=== PATIENT | male | born 1995 | race African-American/Black ===

== ENCOUNTER 2019-07-27 08:39 | Inpatient (IN) | payer OTHER ==
[2019-07-27 09:28] VITALS: BMI 18.8
--- NOTE | 2019-07-27 11:36 | HP ---
CIWA Score Nausea/Vomitin Muscle Tremors: None Anxiety: 3 Agitation: 2 Paroxysmal Sweats: 3 Orientation: 2-Disoriented Date<2 days Tacttile Disturbances: 0-None Auditory Disturbances: 0-None Visual Disturbances: 0-None Headache: 1-Very Mild CIWA-Ar Total Score: 13 - Admission Criteria OASAS Guidelines: Admission for Medically Managed Detox: Requires at least one of the followin. CIWA greater than 12 2. Seizures within the past 24 hours 3. Delirium tremens within the past 24 hours 4. Hallucinations within the past 24 hours 5. Acute intervention needed for co occurring medical disorder 6. Acute intervention needed for co occurring psychiatric disorder 7. Severe withdrawal that cannot be handled at a lower level of care (continued vomiting, continued diarrhea, abnormal vital signs) requiring intravenous medication and/or fluids 8. Admission ROS [facility] - HPI Allergies/Adverse Reactions: Allergies Allergy/AdvReac Type Severity Reaction Status Date / Time chocolate flavor Allergy Verified 07/27/19 09:18 Fish Containing Products Allergy Verified 07/27/19 09:18 No Known Drug Allergies Allergy Verified 07/27/19 09:19 No Known Drug Intolerances Allergy Verified 07/27/19 09:19 peanut Allergy Verified 07/27/19 09:18 History of Present Illness: 23 y.o. male here w/ etoh use since last summer , reports seizure x once , current EDUARDO .128 K2 -since age 16 [place] - recnet use tobacco:denies pmhX ; ptsd, bipolar, sad , adhd , asthma , thumb surgery for removal of glass R 2017 nursing was unable to verify medications with pharmacy on record , floor nursing staff to ask pt about alternate pharmacy info . - Ebola screening Have you traveled outside of the country in the last 21 days: No Have you had contact with anyone from an Ebola affected area: No - Review of Systems Constitutional: Loss of Appetite EENT: reports: No Symptoms Reported (glasses - myopia, denies dysphagia) Respiratory: reports: See HPI Cardiac: reports: Other (reports chest wall pain since today - lifting weights at home . " it hurts when I touch it ") GI: reports: Nausea, Poor Appetite : reports: No Symptoms Reported Musculoskeletal: reports: Back Pain Integumentary: reports: No Symptoms Reported Neuro: reports: See HPI Endocrine: reports: No Symptoms Reported Psychiatric: reports: Agitated, Anxious, Depressed, Disorientated Patient History - Smoking Cessation Smoking history: Current some day smoker Have you smoked in the past 12 months: Yes Hx Chewing Tobacco Use: No Initiated information on smoking cessation: Yes 'Breaking Loose' booklet given: 07/27/19 - Substances abused Alcohol Substance route: Oral Frequency: Daily Amount used: 375 ML VODKA, [place] [employer] TEA, Age of first use: 23 Date of last use: 07/26/19 K2/Spice Substance route: Smoking Frequency: Daily Amount used: 30-40 BLUNTS Age of first use: 16 Date of last use: 07/26/19 Admission Physical Exam S - Vital Signs Vital Signs: Vital Signs - 24 hr 07/27/19 09:22 Temperature 97.0 F L Pulse Rate 71 Respiratory 18 Rate Blood Pressure 138/79 - Physical General Appearance: Yes: Alcohol on Breath, Intoxicated, Anxious HEENTM: Yes: EOMI, Hearing grossly Normal, Normocephalic, Normal Voice Respiratory: Yes: Lungs Clear, Normal Breath Sounds, No Respiratory Distress, No Accessory Muscle Use, Other (tender anterior chest wall , reproducible w/ palpation left upper ribcage) Neck: Yes: No masses,lesions,Nodules, Trachea in good position Cardiology: Yes: Regular Rhythm, Regular Rate, S1, S2, Other (EKG : NSR) Abdominal: Yes: Non Tender, Flat, Soft Musculoskeletal: Yes: Gait Steady Extremities: Yes: Normal Range of Motion, Non-Tender Neurological: Yes: Alert, Motor Strength 5/5 Integumentary: Yes: Warm - Diagnostic (1) Alcohol use disorder Current Visit: Yes Status: Chronic (2) Inhalant dependence with other inhalant-induced disorder Current Visit: Yes Status: Chronic Breathalyzer - Breathalyzer Breathalyzer: 0.128 Urine Drug Screen - Test Device Lot number: [id number] Expiration date: 02/01/21 - Control Is test valid?: Yes - Results Drug screen NEGATIVE: No Urine drug screen results: THC-Marijuana Inpatient Rehab Admission - Rehab Decision to Admit Inpatient rehab admission?: No
[2019-07-27] MEDS ORDERED: MELATONIN 5 MG TABLETS PO PRN (12:29)
[2019-07-27] MEDS ORDERED: ACETAMINOPHEN 325 MG TABLET (FP) PO PRN ×2 (12:29)
[2019-07-27] MEDS ORDERED: MAGNESIUM CITRATE 300 ML BOTTLE PO PRN (12:29)
[2019-07-27] MEDS ORDERED: MAGNESIUM HYDROX 2400MG/30ML ORAL SUSPENSION 30 ML CUP PO PRN (12:29)
[2019-07-27] MEDS ORDERED: MENTHOL/PHENOL 1 EACH UD MM PRN (12:29)
[2019-07-27] MEDS ORDERED: BISMUTH SUBSALICYLATE 524 MG/30 ML UD PO PRN (12:29)
[2019-07-27] MEDS ORDERED: hydrOXYzine PAMOATE 25 MG CAPSULE (FP) PO PRN (12:29)
[2019-07-27] MEDS ORDERED: METHOCARBAMOL 500 MG TABLET PO PRN (12:29)
[2019-07-27] MEDS ORDERED: MAG HYDROX/AL HYDROX/SIMETH 30 ML UNIT-DOSE CUP PO PRN (12:29)
[2019-07-27] MEDS ORDERED: IBUPROFEN 400 MG TABLET (FP) PO PRN (12:29)
[2019-07-27] MEDS ORDERED: diazePAM 5 MG TABLET PO PRN (12:30)
[2019-07-27] MEDS ORDERED: ALBUTEROL SO4 HFA INHALER IH PRN ×2 (12:30→14:53)
[2019-07-27] MEDS: diazePAM 5 MG TABLET PO SCH ×2 (13:39→23:50)
[2019-07-27] MEDS ORDERED: ELVITEG/COB/EMTRI/TENOF (GENVOYA) TABLET (NF) PO SCH (14:00)
[2019-07-27] MEDS ORDERED: ALBUTEROL SO4 0.083% IH SOL 2.5 MG/3 ML VIAL.NEB. NEB PRN (14:53)
--- NOTE | 2019-07-27 14:54 | PN ---
[facility] Progress Note Note: received nurse call that the patient prefers to discuss medication with a medical provider technical publications writer called preferred pharmacy at [phone] that genvoya depakote er and risperidal increase ventolin to 2 puff prn addition to albuteral nebulizer prn
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
[2019-07-27] MEDS ORDERED: hydrOXYzine PAMOATE 50 MG CAPSULE (FP) PO PRN (15:06)
--- NOTE | 2019-07-27 15:14 | EKG ---
Test Reason : Blood Pressure : / mmHG Vent. Rate : 067 BPM Atrial Rate : 067 BPM P-R Int : 128 ms QRS Dur : 102 ms QT Int : 388 ms P-R-T Axes : 057 045 066 degrees QTc Int : 409 ms NORMAL SINUS RHYTHM WITH SINUS ARRHYTHMIA NORMAL ECG NO PREVIOUS ECGS AVAILABLE Confirmed by PORSCHE GARCIA MD ([id number]) on 07/27/2019 3:14:41 PM Referred By: Confirmed By:PORSCHE GARCIA MD
[2019-07-27 17:04] LABS: HEMATOCRIT 43.1 % (35.4-49); HEMOGLOBIN 14.2 GM/dL (11.7-16.9); MCH 35.1 pg (25.7-33.7); MEAN CELL VOLUME 106.4 fl (80-96); MEAN PLT VOLUME 9.4 fl (7.5-11.1); PLATELET COUNT 256 K/MM3 (134-434); RBC 4.05 M/mm3 (4.00-5.60); RDW 13.8 % (11.9-15.9); WHITE BLOOD COUNT 14.9 K/mm3 (4.0-10.0)
[2019-07-27 17:25] LABS: ALBUMIN 4.8 g/dl (3.4-5.0); BILIRUBIN,TOTAL 0.5 mg/dL (0.2-1); BLOOD UREA NITROGEN 15.6 mg/dL (7-18); CALCIUM 10.6 mg/dL (8.5-10.1); CREATININE 1.1 mg/dL (0.55-1.3); POTASSIUM 3.9 mmol/L (3.5-5.1); TOT PROT 9.2 g/dl (6.4-8.2)
[2019-07-27 19:56] VITALS: BP 149/96; PULSE 93; TEMP 98.9
--- NOTE | 2019-07-27 21:48 | PN ---
[facility] Progress Note Note: called by nurse - pt c/o chest pain . Pt states pain is similar to prior complaint of painful upper chest worse with touching . Vital Signs - 24 hr 07/27/19 07/27/19 07/27/19 09:22 13:34 17:09 Temperature 97.0 F L 98.0 F 97.9 F Pulse Rate 71 103 H 94 H Respiratory 18 18 18 Rate Blood Pressure 138/79 135/79 107/51 L 07/27/19 07/27/19 07/27/19 19:30 19:56 21:34 Temperature 100.2 F H 98.9 F 98.9 F Pulse Rate 84 93 H 93 H Respiratory 18 18 18 Rate Blood Pressure 146/84 149/96 149/96 O : tenderness to palpation midsternum and costochondral junction anterior ribs P : transfer to ER for further evaluation .
[2019-07-27] MEDS ORDERED: THIAMINE HCL 100 MG TABLET (FP) PO SCH (22:00)
[2019-07-27] MEDS ORDERED: QUEtiapine FUMARATE 50 MG TABLET PO SCH (22:00)
[2019-07-28] MEDS ORDERED: PRENATAL VITAMINS W/ FOLIC ACID TABLET (FP) PO SCH (10:00)
[2019-07-29] MEDS ORDERED: diazePAM 5 MG TABLET PO SCH (06:00)
[2019-07-30] MEDS ORDERED: diazePAM 5 MG TABLET PO ONE (06:00)
== END 2019-07-28 01:46 | disposition left against medical advice (07) | DRG 770 ==
LOC: YASAS 08:39 → Y3N 12:22
PROVIDERS: ADMIT Allergy & Immunology; ATTEND Allergy & Immunology
PROC: HZ2ZZZZ Detoxification Services for Substance Abuse Treatment (ICD-10-PCS; principal; 2019-07-27)
DX: F10.230 Alcohol dependence with withdrawal, uncomplicated (principal); F12.20 Cannabis dependence, uncomplicated; F18.288 Inhalant dependence with other inhalant-induced disorder; F17.210 Nicotine dependence, cigarettes, uncomplicated; F19.24 Other psychoactive substance dependence with psychoactive substance-induced mood disorder; F25.9 Schizoaffective disorder, unspecified; F39 Unspecified mood [affective] disorder; F43.10 Post-traumatic stress disorder, unspecified; Z21 Asymptomatic human immunodeficiency virus [HIV] infection status; R07.89 Other chest pain; J45.909 Unspecified asthma, uncomplicated; Z91.018 Allergy to other foods; Z88.8 Allergy status to other drugs, medicaments and biological substances; Z91.5 Personal history of self-harm
CPT/HCPCS: 36415; 80053; 85027; 86593; 93005; 93010

== ENCOUNTER 2019-07-27 20:28 | Emergency (ER) | payer OTHER ==
[2019-07-27 20:33] VITALS: TEMP 99.8; BMI 18.8
--- NOTE | 2019-07-27 21:09 | PDOC ---
History of Present Illness - General Chief Complaint: Pain, Acute Stated Complaint: ABDOMINAL PAIN Time Seen by Provider: 07/27/19 20:44 - History of Present Illness Initial Comments: Mr. Bright is a 23 y/o male with PMH significant for HIV (last viral load undetectable) presenting today with midsternal chest pain that started today. Reports that yesterday he was drinking heavily and blacked out. He was sent to [facility] for detox when he started having chest pain today, associated with cough, nausea, vomiting. Reports subjective fever. Chest pain is reproducible. No pleuritic chest pain. No radiation of pain. Past History - Past Medical History Allergies/Adverse Reactions: Allergies Allergy/AdvReac Type Severity Reaction Status Date / Time chocolate flavor Allergy Verified 07/27/19 20:31 Fish Containing Products Allergy Verified 07/27/19 20:31 No Known Drug Allergies Allergy Verified 07/27/19 20:31 No Known Drug Intolerances Allergy Verified 07/27/19 20:31 peanut Allergy Verified 07/27/19 20:31 Home Medications: Ambulatory Orders Albuterol Sulfate Inhaler - [Ventolin Hfa Inhaler -] 1 - 2 inh PO Q4H PRN Divalproex *ER* [Depakote *ER* -] 500 mg PO BID 07/27/19 Elviteg/Cob/Emtri/Tenof Alafen [Genvoya (Non-Formulary)] 1 each PO DAILY Risperidone 2 mg PO HS 07/27/19 Asthma: Yes Cardiac Disorders: No COPD: No Diabetes: No GI Disorders: No Disorders: No HTN: No Kidney Stones: No Seizures: Yes (january 2019 fro alcohol with drawal) - Surgical History Abdominal Surgery: No Appendectomy: No Cardiac Surgery: No Cholecystectomy: No Lung Surgery: No Neurologic Surgery: No Orthopedic Surgery: No - Reproductive History Testicular Surgery: No - Psycho Social/Smoking Cessation Hx Smoking History: Unknown if ever smoked Have you smoked in the past 12 months: No Number of Cigarettes Smoked Daily: 3 Information on smoking cessation initiated: No 'Breaking Loose' booklet given: 07/27/19 Hx Alcohol Use: Yes Drug/Substance Use Hx: Yes Hx Substance Use Treatment: No Review of Systems - Review of Systems Comments:: GENERAL/CONSTITUTIONAL: No fever or chills. No weakness._ HEAD, EYES, EARS, NOSE AND THROAT: No change in vision. No change in hearing. No sore throat._ CARDIOVASCULAR: Reports chest pain. No shortness of breath_ RESPIRATORY: Denies cough, hemoptysis_ GASTROINTESTINAL: No nausea, vomiting, diarrhea or constipation._ GENITOURINARY: No dysuria, frequency, or change in urination._ MUSCULOSKELETAL: No joint or muscle swelling or pain. No neck or back pain._ SKIN: No rash_ NEUROLOGIC: No headache, vertigo, loss of consciousness, or change in strength/ sensation._ ENDOCRINE: No increased thirst. No abnormal weight change_ HEMATOLOGIC/LYMPHATIC: No anemia, easy bleeding, or history of blood clots._ ALLERGIC/IMMUNOLOGIC: No hives or skin allergy._ *Physical Exam - Vital Signs Last Vital Signs Temp Pulse Resp BP Pulse Ox 99.8 F H 98 H 20 128/73 07/27/19 20:31 07/27/19 20:31 07/27/19 20:31 07/27/19 20:31 - Physical Exam GENERAL: Awake, alert, and oriented to person/place/time, in no acute distress_ HEAD: No signs of trauma, normoc ephalic, atraumatic _ EYES: PERRLA, EOMI, sclera anicteric, conjunctiva clear_ ENT: Hearing grossly normal, nares patent, oropharynx clear without exudates. No uvular deviation. Moist mucosa_ NECK: Normal ROM, supple, no lymphadenopathy, JVD, or masses_ LUNGS: No distress, speaks in full sentences, clear to auscultation bilaterally _ CHEST: Left mid sternal TTP. No bruising, no rash. HEART: Regular rate and rhythm, normal S1 and S2, no murmurs appreciated, peripheral pulses normal and equal bilaterally._ ABDOMEN: Soft, nontender, normoactive bowel sounds. No guarding, no rebound. No masses_ EXTREMITIES: Normal inspection, Normal range of motion, no edema. No clubbing or cyanosis_ NEUROLOGICAL: Cranial nerves II through XII grossly intact. Normal speech, normal gait, no focal sensorimotor deficits _ SKIN: Warm, Dry, normal turgor, no rashes or lesions noted_ ED Treatment Course - LABORATORY CBC & Chemistry Diagram: 07/27/19 21:10 07/27/19 21:10 - RADIOLOGY Radiology Studies Ordered: Category Date Time Status CHEST X-RAY PORTABLE* [RAD] Stat Radiology 07/27/19 21:05 Ordered Medical Decision Making - Medical Decision Making 07/27/19 21:08 23M HIV+ presenting with chest pain that started today. Reproducible. No radiation. No pleuritic chest pain. Reports cough, nausea, vomiting today. -cbc, cmp, lipase -cxr, ekg, trop 07/27/19 23:28 EKG shows NSR 64 bpm, no ST elevation/depression, no axis deviation, QTc 408. CXR shows no acute intra thoracic pathology. Laboratory Last Values WBC 10.6 K/mm3 (4.0-10.0) H 07/27/19 21:10 RBC 3.67 M/mm3 (4.00-5.60) L 07/27/19 21:10 Hgb 13.1 GM/dL (11.7-16.9) 07/27/19 21:10 Hct 38.0 % (35.4-49) 07/27/19 21:10 MCV 103.7 fl (80-96) H 07/27/19 21:10 MCH 35.6 pg (25.7-33.7) H 07/27/19 21:10 MCHC 34.4 g/dl (32.0-35.9) 07/27/19 21:10 RDW 13.7 % (11.9-15.9) 07/27/19 21:10 Plt Count 223 K/MM3 (134-434) 07/27/19 21:10 MPV 8.6 fl (7.5-11.1) 07/27/19 21:10 Absolute Neuts (auto) 7.3 K/mm3 (1.5-8.0) 07/27/19 21:10 Neutrophils % 68.4 % (42.8-82.8) 07/27/19 21:10 Lymphocytes % 24.2 % (8-40) 07/27/19 21:10 Monocytes % 7.0 % (3.8-10.2) 07/27/19 21:10 Eosinophils % 0.1 % (0-4.5) 07/27/19 21:10 Basophils % 0.3 % (0-2.0) 07/27/19 21:10 Nucleated RBC % 0 % (0-0) 07/27/19 21:10 Sodium 136 mmol/L (136-145) 07/27/19 21:10 Potassium 3.8 mmol/L (3.5-5.1) 07/27/19 21:10 Chloride 100 mmol/L (98-107) 07/27/19 21:10 Carbon Dioxide 26 mmol/L (21-32) 07/27/19 21:10 Anion Gap 11 MMOL/L (8-16) 07/27/19 21:10 BUN 14.4 mg/dL (7-18) 07/27/19 21:10 Creatinine 1.0 mg/dL (0.55-1.3) 07/27/19 21:10 Est GFR (CKD-EPI)AfAm 124.14 07/27/19 21:10 Est GFR (CKD-EPI)NonAf 107.11 07/27/19 21:10 Random Glucose 77 mg/dL (74-106) 07/27/19 21:10 Calcium 9.6 mg/dL (8.5-10.1) 07/27/19 21:10 Total Bilirubin 0.6 mg/dL (0.2-1) 07/27/19 21:10 AST 86 U/L (15-37) H 07/27/19 21:10 ALT 59 U/L (13-61) 07/27/19 21:10 Alkaline Phosphatase 99 U/L (45-117) 07/27/19 21:10 Creatine Kinase 569 U/L (26-308) H 07/27/19 21:10 Creatine Kinase Index 0.2 % (0.0-5.0) 07/27/19 21:10 CK-MB (CK-2) 1.7 ng/mL (0.5-3.6) 07/27/19 21:10 Troponin I < 0.02 ng/ml (0.00-0.05) 07/27/19 21:10 Total Protein 7.9 g/dl (6.4-8.2) 07/27/19 21:10 Albumin 4.2 g/dl (3.4-5.0) 07/27/19 21:10 Lipase 98 U/L (73-393) 07/27/19 21:10 Opiates Screen Negative ng/ml (PIURLY=616) 07/27/19 21:10 Methadone Screen Negative ng/ml (VFXZKH=892) 07/27/19 21:10 Barbiturate Screen Negative ng/ml (DRYZFI=344) 07/27/19 21:10 Phencyclidine Screen Negative ng/ml (CUTOFF=25) 07/27/19 21:10 Ur Amphetamines Screen Negative ng/ml (EQKSAF=686) 07/27/19 21:10 MDMA (Ecstasy) Screen Negative ng/ml (NJKWCS=914) 07/27/19 21:10 Benzodiazepines Screen Positive ng/ml (MSMZRB=088) A* 07/27/19 21:10 Cocaine Screen Negative ng/ml (LNJJPN=774) 07/27/19 21:10 U Marijuana (THC) Screen Positive ng/ml (CUTOFF=50) A* 07/27/19 21:10 Alcohol, Quantitative < 3 mg/dL (0.0-5.0) 07/27/19 21:10 07/27/19 23:33 D/w [employer] Kristi at [facility], who accepts the patient to return to [facility]. Discharge - Discharge Information Problems reviewed: Yes Clinical Impression/Diagnosis: Chest wall pain Condition: Stable Disposition: PRISON FACILITY - Admission No - Follow up/Referral Referrals: Vitor Culp DO [Primary Care Provider] - - Patient Discharge Instructions Additional Instructions: Please continue to take your medications as prescribed and continue to the detox program at [facility]. If you experience any new, worsening, or concerning symptoms, please return to the emergency department. - Post Discharge Activity
[2019-07-27] MEDS ORDERED: ONDANSETRON 4 MG/2 ML VIAL IVPUSH ONE (21:10)
[2019-07-27] MEDS ORDERED: SODIUM CHLORIDE 0.9% 1000 ML INFUS.BAG IV ONE (21:10)
[2019-07-27] MEDS ORDERED: FAMOTIDINE 20 MG/50 ML IVPB 20 MG/50 ML MG IVPB ONE ×2 (21:10→21:38)
[2019-07-27] MEDS ORDERED: ONDANSETRON 4 MG/2 ML VIAL ONE (21:38)
[2019-07-27 21:44] LABS: BASO % 0.3 % (0-2.0); EOS % 0.1 % (0-4.5); HEMOGLOBIN 13.1 GM/dL (11.7-16.9); LYMPH % 24.2 % (8-40); MCH 35.6 pg (25.7-33.7); MCHC 34.4 g/dl (32.0-35.9); MEAN CELL VOLUME 103.7 fl (80-96); MEAN PLT VOLUME 8.6 fl (7.5-11.1); NEUT % 68.4 % (42.8-82.8); PLATELET COUNT 223 K/MM3 (134-434); RBC 3.67 M/mm3 (4.00-5.60); RDW 13.7 % (11.9-15.9); WHITE BLOOD COUNT 10.6 K/mm3 (4.0-10.0)
[2019-07-27 21:58] LABS: COCAINE, UR NEGATIVE ng/ml (CUTOFF=300); METHADONE, UR NEGATIVE ng/ml (CUTOFF=300); OPIATES, URI NEGATIVE ng/ml (CUTOFF=300); PHENCYCLIDINE,URINE NEGATIVE ng/ml (CUTOFF=25); URINE AMPHETAMINES NEGATIVE ng/ml (CUTOFF=500); URINE BARBITURATES NEGATIVE ng/ml (CUTOFF=200)
[2019-07-27 22:02] LABS: URINE BENZODIAZEPINES POSITIVE ng/ml (CUTOFF=200)
[2019-07-27] MEDS ORDERED: LORazepam 2 MG TABLET PO ONE (22:06)
[2019-07-27] MEDS ORDERED: LORazepam 0.5 MG TABLET ONE (22:10)
[2019-07-27 22:13] LABS: ALBUMIN 4.2 g/dl (3.4-5.0); ALK PHOS 99 U/L (45-117); ANION GAP 11 MMOL/L (8-16); BILIRUBIN,TOTAL 0.6 mg/dL (0.2-1); BLOOD UREA NITROGEN 14.4 mg/dL (7-18); CALCIUM 9.6 mg/dL (8.5-10.1); CHLORIDE 100 mmol/L (98-107); CO2 26 mmol/L (21-32); GLUCOSE,RANDOM 77 mg/dL (74-106); POTASSIUM 3.8 mmol/L (3.5-5.1); SGOT/AST 86 U/L (15-37); SGPT/ALT 59 U/L (13-61); SODIUM 136 mmol/L (136-145); TOT PROT 7.9 g/dl (6.4-8.2)
--- NOTE | 2019-07-27 22:18 | PDOC ---
Documentation entered by Francis Ambrose SCRIBE, acting as scribe for Gloria Palomino DO. Gloria Palomino DO: This documentation has been prepared by the Arnol mosqueda Daniel, SCRIBE, under my direction and personally reviewed by me in its entirety. I confirm that the documentation accurately reflects all work, treatment, procedures, and medical decision making performed by me. Attending Attestation - Resident Resident Name: Demetrius Alcaraz - ED Attending Attestation I have performed the following: I have examined & evaluated the patient, The case was reviewed & discussed with the resident, I agree w/resident's findings & plan, Exceptions are as noted - HPI HPI: 07/27/19 21:12 The patient is a 23 year old male with a past medical history of HIV here today for evaluation of chest pain. The patient reports that he was at [facility] for alcohol detox when he developed left midsternal chest pain today. He notes associated cough, nausea, and vomiting. Patient denies headache, lightheadedness. Denies fever, chills. Denies shortness of breath. Denies diarrhea, abdominal pain. Allergies: NKDA - Physicial Exam PE: 07/27/19 22:06 Constitutional: Awake, alert, oriented. No acute distress. Head: Normocephalic. Atraumatic Eyes: PERRL. EOMI. Conjunctivae are not pale. ENT: No tongue fasciculations. Mucous membranes are moist and intact. Posterior pharynx without exudates or erythema. Uvula midline. Neck: Supple. Full ROM. No lymphadenopathy. Cardiovascular: +borderline tachycardia. Regular rhythm. S1, S2 regular. Distal pulses are 2+ and symmetric. Pulmonary/Chest: No evidence of respiratory distress. Clear to auscultation bilaterally No wheezing, rales or rhonchi. Abdominal: Soft and non-distended. There is no tenderness. No rebound, guarding or rigidity. No organomegaly. No palpable masses. Good bowel sounds. Back: No CVA tenderness. Musculoskeletal: No edema. No cyanosis. No clubbing. Full range of motion in all extremities. Nocalf tenderness. Radial/pedal pulses are intact and 2+ bilaterally Skin: Skin is warm and dry. No petechiae. No purpura. Neurological: +mild hand tremors. Alert and oriented to person, place, and time. Cranial nerves II-XII are grossly intact. Normal speech. Strength is grossly symmetric. No sensory deficits. Psychiatric: Good eye contact. Normal interaction, affect and behavior. - Medical Decision Making 07/27/19 22:16 a/p: 23yo male with hx of HIV -nondetectable viral load, followed at [facility] -pt admits to etoh abuse, was admitted for detox today to [facility] when he c/o n/v and cp -pt denies cp at this time -denies abd pain at this time -vomited up librium -will send labs, abd is soft -will hydrate, zofran, pepcid -suspect alcohol withdrawal with n/v -will send lipase -will monitor and reassess 07/27/19 22:25 labs reviewed ivf hydration running 07/27/19 23:13 lipase neg will give po challenge 07/27/19 23:27 pt has tolerated po no longer with pain stable for dc back to [facility] to complete his detox Heart Score/ECG Review - ECG Intrepretation Comment:: 07/27/19 23:22 sinus at 64, early repol, nl axis, no acute st/t wave findings
[2019-07-27 23:12] LABS: LIPASE 98 U/L (73-393)
[2019-07-28 00:11] VITALS: BP 122/64; PULSE 83
--- NOTE | 2019-07-28 02:25 | DS ---
[facility] Detox Discharge Summary Discharge Date: 07/28/19 - History Additional Comments: Patient was seen and evaluated in ER with complaint of midsternal chest pain. Patient reports that he feels better and does not wish to continue with his detoxification. Risks and consequences of his action reinforced. Patient refused to be assessed and searched stating that he is done and wants his belongins. Loan Servicing Representative aware. Pertinent Past History: HIV+, asthma, seizures, alcohol dependence - Physical Exam Results Vital Signs: Vital Signs Temperature 99.8 F H 07/27/19 20:31 Pulse Rate 83 07/28/19 00:09 Respiratory Rate 18 07/28/19 00:09 Blood Pressure 122/64 07/28/19 00:09 O2 Sat by Pulse Oximetry (%) 100 07/28/19 00:09 Laboratory Last Values WBC 10.6 K/mm3 (4.0-10.0) H 07/27/19 21:10 RBC 3.67 M/mm3 (4.00-5.60) L 07/27/19 21:10 Hgb 13.1 GM/dL (11.7-16.9) 07/27/19 21:10 Hct 38.0 % (35.4-49) 07/27/19 21:10 MCV 103.7 fl (80-96) H 07/27/19 21:10 MCH 35.6 pg (25.7-33.7) H 07/27/19 21:10 MCHC 34.4 g/dl (32.0-35.9) 07/27/19 21:10 RDW 13.7 % (11.9-15.9) 07/27/19 21:10 Plt Count 223 K/MM3 (134-434) 07/27/19 21:10 MPV 8.6 fl (7.5-11.1) 07/27/19 21:10 Absolute Neuts (auto) 7.3 K/mm3 (1.5-8.0) 07/27/19 21:10 Neutrophils % 68.4 % (42.8-82.8) 07/27/19 21:10 Lymphocytes % 24.2 % (8-40) 07/27/19 21:10 Monocytes % 7.0 % (3.8-10.2) 07/27/19 21:10 Eosinophils % 0.1 % (0-4.5) 07/27/19 21:10 Basophils % 0.3 % (0-2.0) 07/27/19 21:10 Nucleated RBC % 0 % (0-0) 07/27/19 21:10 Sodium 136 mmol/L (136-145) 07/27/19 21:10 Potassium 3.8 mmol/L (3.5-5.1) 07/27/19 21:10 Chloride 100 mmol/L (98-107) 07/27/19 21:10 Carbon Dioxide 26 mmol/L (21-32) 07/27/19 21:10 Anion Gap 11 MMOL/L (8-16) 07/27/19 21:10 BUN 14.4 mg/dL (7-18) 07/27/19 21:10 Creatinine 1.0 mg/dL (0.55-1.3) 07/27/19 21:10 Est GFR (CKD-EPI)AfAm 124.14 07/27/19 21:10 Est GFR (CKD-EPI)NonAf 107.11 07/27/19 21:10 Random Glucose 77 mg/dL (74-106) 07/27/19 21:10 Calcium 9.6 mg/dL (8.5-10.1) 07/27/19 21:10 Total Bilirubin 0.6 mg/dL (0.2-1) 07/27/19 21:10 AST 86 U/L (15-37) H 07/27/19 21:10 ALT 59 U/L (13-61) 07/27/19 21:10 Alkaline Phosphatase 99 U/L (45-117) 07/27/19 21:10 Creatine Kinase 569 U/L (26-308) H 07/27/19 21:10 Creatine Kinase Index 0.2 % (0.0-5.0) 07/27/19 21:10 CK-MB (CK-2) 1.7 ng/mL (0.5-3.6) 07/27/19 21:10 Troponin I < 0.02 ng/ml (0.00-0.05) 07/27/19 21:10 Total Protein 7.9 g/dl (6.4-8.2) 07/27/19 21:10 Albumin 4.2 g/dl (3.4-5.0) 07/27/19 21:10 Lipase 98 U/L (73-393) 07/27/19 21:10 Opiates Screen Negative ng/ml (YOWSSW=817) 07/27/19 21:10 Methadone Screen Negative ng/ml (FEQXGW=956) 07/27/19 21:10 Barbiturate Screen Negative ng/ml (RZURQR=360) 07/27/19 21:10 Phencyclidine Screen Negative ng/ml (CUTOFF=25) 07/27/19 21:10 Ur Amphetamines Screen Negative ng/ml (BYWLHT=049) 07/27/19 21:10 MDMA (Ecstasy) Screen Negative ng/ml (FRTALZ=136) 07/27/19 21:10 Benzodiazepines Screen Positive ng/ml (NXTARW=291) A* 07/27/19 21:10 Cocaine Screen Negative ng/ml (OOZUTH=702) 07/27/19 21:10 U Marijuana (THC) Screen Positive ng/ml (CUTOFF=50) A* 07/27/19 21:10 Alcohol, Quantitative < 3 mg/dL (0.0-5.0) 07/27/19 21:10 Pertinent Admission Physical Exam Findings: Alcohol withdrawal symptoms - Medication Discharge Medications: Ambulatory Orders Albuterol Sulfate Inhaler - [Ventolin Hfa Inhaler -] 1 - 2 inh PO Q4H PRN Divalproex *ER* [Depakote *ER* -] 500 mg PO BID 07/27/19 Elviteg/Cob/Emtri/Tenof Alafen [Genvoya (Non-Formulary)] 1 each PO DAILY Risperidone 2 mg PO HS 07/27/19 - Diagnosis (1) Asthma Status: Acute (2) Seizure Status: Acute (3) HIV (human immunodeficiency virus infection) Status: Acute (4) Chest wall pain Status: Acute (5) Substance induced mood disorder Status: Acute (6) Alcohol use disorder Status: Chronic (7) Inhalant dependence with other inhalant-induced disorder Status: Chronic (8) Schizoaffective disorder Status: Suspected - AMA Did Patient Leave Against Medical Advice: Yes
--- NOTE | 2019-07-28 14:01 | EKG ---
Test Reason : Blood Pressure : / mmHG Vent. Rate : 064 BPM Atrial Rate : 064 BPM P-R Int : 130 ms QRS Dur : 100 ms QT Int : 396 ms P-R-T Axes : 064 046 069 degrees QTc Int : 408 ms NORMAL SINUS RHYTHM INCOMPLETE RBBB WHEN COMPARED WITH ECG OF 27-JUL-2019 12:16, T WAVE INVERSION NOW EVIDENT IN ANTERIOR LEADS Confirmed by REUBEN HARDWICK MD ([id number]) on 07/28/2019 2:00:47 PM Referred By: Confirmed By:REUBEN HARDWICK MD
== END 2019-07-28 00:14 ==
LOC: JER 20:28
PROC: 3E033GC Introduction of Other Therapeutic Substance into Peripheral Vein, Percutaneous Approach (ICD-10-PCS; principal; 2019-07-27)
DX: R07.89 Other chest pain (principal); Z91.018 Allergy to other foods; Z91.013 Allergy to seafood
CPT/HCPCS: 36415; 71045-TC-FY; 80053; 80307; 82550; 82553; 83690; 84484; 85025; 93005; 93010; 99283-25; J7030

== ENCOUNTER 2023-11-16 14:03 | Inpatient (IN) | payer OTHER ==
[2023-11-16 17:03] VITALS: BMI 18.1
[2023-11-16] MEDS ORDERED: chlordiazePOXIDE HCL 25 MG CAPSULE PO PRN (18:36)
[2023-11-16] MEDS ORDERED: LOPERAMIDE HCL 2 MG CAPSULE PO PRN (19:32)
[2023-11-16] MEDS ORDERED: POLYETHYLENE GLYCOL (HEALTHYLAX) 3350 17 GM PACKET PO PRN (19:32)
[2023-11-16] MEDS ORDERED: DICYCLOMINE HCL 10 MG CAPSULE PO PRN (19:32)
[2023-11-16] MEDS ORDERED: MAG HYDROX/AL HYDROX/SIMETH 30 ML UNIT-DOSE CUP PO PRN (19:32)
[2023-11-16] MEDS ORDERED: MAGNESIUM HYDROX 2400MG/30ML ORAL SUSPENSION 30 ML CUP PO PRN (19:32)
[2023-11-16] MEDS ORDERED: BENZONATATE 200 MG CAPSULE PO PRN (19:32)
[2023-11-16] MEDS ORDERED: IBUPROFEN 600 MG TABLET (FP) PO PRN (19:32)
[2023-11-16] MEDS ORDERED: guaiFENesin 600 MG TABLET.ER (FP) PO PRN (19:32)
[2023-11-16] MEDS ORDERED: IBUPROFEN 400 MG TABLET (FP) PO PRN (19:32)
[2023-11-16] MEDS ORDERED: BISMUTH SUBSALICYLATE 524 MG/30 ML PO PRN (19:32)
[2023-11-16] MEDS ORDERED: BENZOCAINE/MENTHOL (CHLORASEPTIC ) LOZENGE MM PRN (19:32)
[2023-11-16] MEDS ORDERED: ONDANSETRON *ODT* 4 MG TABLET SL PRN (19:32)
[2023-11-16] MEDS ORDERED: NICOTINE POLACRILEX 2 MG GUM BUC PRN (19:32)
[2023-11-16] MEDS ORDERED: ACETAMINOPHEN 325 MG TABLET (FP) PO PRN (19:32)
[2023-11-16] MEDS ORDERED: hydrOXYzine PAMOATE 25 MG CAPSULE (FP) PO PRN (19:32)
[2023-11-16] MEDS ORDERED: ALBUTEROL SO4 HFA INHALER IH PRN (20:57)
[2023-11-16] MEDS: METOPROLOL TARTRATE 25 MG TABLET (FP) PO ONE (21:45)
[2023-11-16] MEDS: METHOCARBAMOL 500 MG TABLET PO PRN (22:18)
[2023-11-16] MEDS: MELATONIN 5 MG TABLETS PO SCH (22:18)
[2023-11-16] MEDS: THIAMINE 100 MG TABLET PO SCH (22:18)
[2023-11-16] MEDS: chlordiazePOXIDE HCL 25 MG CAPSULE PO SCH (22:18)
[2023-11-17] MEDS: PRENATAL VITAMINS W/ FOLIC ACID TABLET (FP) PO SCH (10:25)
[2023-11-17] MEDS: ELVITEG/COB/EMTRI/TENOF (GENVOYA) TABLET PO SCH (10:54)
[2023-11-17 12:12] LABS: HEMATOCRIT 42.6 % (35.4-49); HEMOGLOBIN 14.6 GM/dL (11.7-16.9); MCH 34.6 pg (25.7-33.7); MCHC 34.3 g/dl (32.0-35.9); MEAN CELL VOLUME 100.7 fl (80-96); MEAN PLT VOLUME 8.8 fl (7.5-11.1); PLATELET COUNT 246 10^3/uL (134-434); RBC 4.24 M/mm3 (4.00-5.60); RDW 14.2 % (11.9-15.9); WHITE BLOOD COUNT 7.1 K/mm3 (4.0-10.0)
[2023-11-17 12:55] LABS: POTASSIUM 4.1 mmol/L (3.5-5.1)
[2023-11-17 12:56] LABS: ALBUMIN 4.2 g/dl (3.4-5.0); BLOOD UREA NITROGEN 12.6 mg/dL (7-18)
[2023-11-17 12:59] LABS: CREATININE 1.1 mg/dL (0.55-1.3)
[2023-11-17 13:01] LABS: BILIRUBIN,TOTAL 1.6 mg/dL (0.2-1)
[2023-11-18] MEDS: chlordiazePOXIDE HCL 25 MG CAPSULE PO SCH (05:46)
[2023-11-18 11:44] LABS: INR 0.99 (0.83-1.09); PROTHROMBIN TIME (PATIENT) 11.2 SEC (9.7-13.0)
[2023-11-18] MEDS: NALTREXONE HCL 50 MG TABLET PO SCH (15:19)
[2023-11-18] MEDS: CHOLECALCIFEROL (VIT D3) 400 UNIT (10 MCG) TABLET PO SCH (15:19)
[2023-11-19] MEDS ORDERED: chlordiazePOXIDE HCL 10 MG CAPSULE PO PRN
[2023-11-19] MEDS ORDERED: INSULIN ASPART SLIDING SCALE (NOVOLOG) 1 VIAL SQ ONE (05:08)
[2023-11-19] MEDS: chlordiazePOXIDE HCL 10 MG CAPSULE PO SCH (05:19)
[2023-11-19] MEDS: LACTULOSE 20 GM/30 ML UDC (FOR ORAL USE ONLY) PO SCH (07:39)
[2023-11-19] MEDS: NALTREXONE HCL 50 MG TABLET PO SCH (10:14)
[2023-11-19] MEDS: ARIPiprazole 5 MG TABLET PO SCH (18:24)
[2023-11-19] MEDS ORDERED: DIVALPROEX SODIUM 500 MG TABLET E.C. PO SCH (22:00)
[2023-11-19] MEDS: DIVALPROEX SODIUM 250 MG TABLET E.C. PO SCH (22:14)
[2023-11-19] MEDS: traZODone HCL 50 MG TABLET (FP) PO SCH (22:14)
[2023-11-20] MEDS: chlordiazePOXIDE HCL 10 MG CAPSULE PO SCH (05:48)
[2023-11-20 09:35] VITALS: TEMP 98.6
[2023-11-20 13:12] VITALS: BP 106/69; PULSE 65; RESP 16
[2023-11-21] MEDS ORDERED: chlordiazePOXIDE HCL 10 MG CAPSULE PO ONE (05:00)
[2023-11-21] MEDS ORDERED: NALTREXONE MICROSPHERES (VIVITROL) 380 MG DISP.SYRIN IM ONE (10:00)
== END 2023-11-20 15:45 | disposition home or self-care (01) | DRG 775 ==
LOC: YASAS 14:03 → Y3N 19:59
PROVIDERS: ADMIT Allergy & Immunology; ATTEND Psychiatry & Neurology Pain Medicine
PROC: HZ2ZZZZ Detoxification Services for Substance Abuse Treatment (ICD-10-PCS; principal; 2023-11-16)
DX: F10.230 Alcohol dependence with withdrawal, uncomplicated (principal); F17.210 Nicotine dependence, cigarettes, uncomplicated; F20.9 Schizophrenia, unspecified; F31.9 Bipolar disorder, unspecified; F19.282 Other psychoactive substance dependence with psychoactive substance-induced sleep disorder; F19.24 Other psychoactive substance dependence with psychoactive substance-induced mood disorder; F43.10 Post-traumatic stress disorder, unspecified; Z21 Asymptomatic human immunodeficiency virus [HIV] infection status; R56.9 Unspecified convulsions; Z79.899 Other long term (current) drug therapy; Z91.199 Patient's noncompliance with other medical treatment and regimen due to unspecified reason
CPT/HCPCS: 36415; 80053; 80305; 80307; 82140; 82306; 83735; 85027; 85610; 86780; 93005; 93010